=== PATIENT | female | born 1985 | race Caucasian/White ===

== ENCOUNTER 2016-07-18 07:57 | Day surgery (SDC) | payer OTHER ==
[2016-07-11 13:06] LABS: PROTHROMBIN TIME 13.5 SEC (11.4-15.4)
[2016-07-11 13:07] LABS: PARTIAL THROMBOPLASTIN TIME 29.1 SEC (23.5-35.8)
[2016-07-11 13:15] LABS: APPEARANCE,URINE SLIGHTLY-CLOUDY; BILIRUBIN,URINE NEGATIVE (NEGATIVE); GLUCOSE, URINE NEGATIVE (NEGATIVE); KETONES,URINE NEGATIVE (NEGATIVE); LEUKOCYTE ESTERASE,URINE NEGATIVE (NEGATIVE); NITRITE,URINE NEGATIVE (NEGATIVE); PROTEIN,URINE NEGATIVE (NEGATIVE); URINE SPECIFIC GRAVITY 1.025; UROBILINOGEN,URINE NEGATIVE mg/dL (<2.0)
[2016-07-11 13:20] LABS: ANION GAP 11 (5-19); BLOOD UREA NITROGEN 11 mg/dL (7-20); CALCIUM 9.7 mg/dL (8.4-10.2); CARBON DIOXIDE 28 mmol/L (22-30); CHLORIDE 102 mmol/L (98-107); CREATININE RESULT 0.85 mg/dL (0.52-1.25); GLUCOSE 64 mg/dL (75-110); POTASSIUM 4.6 mmol/L (3.6-5.0); SODIUM 140.7 mmol/L (137-145)
--- NOTE | 2016-07-11 17:00 | EKG REPORT ---
SEVERITY:- BORDERLINE ECG - SINUS RHYTHM BORDERLINE T ABNORMALITIES, ANTERIOR LEADS : Confirmed by: Alem Matson MD 11-Jul-2016 16:58:03
[2016-07-13 10:14] LABS: ABSOLUTE EOSINOPHILS # (AUTO) 0.1 10^3/uL (0.0-0.6); ABSOLUTE LYMPHOCYTES (AUTO) 1.5 10^3/uL (0.5-4.7); ABSOLUTE MONOCYTES (AUTO) 0.4 10^3/uL (0.1-1.4); ABSOLUTE NEUT (AUTO) 3.9 10^3/uL (1.7-8.2); BASOPHILS % (AUTO) 0.6 % (0-2); EOSINOPHILS % (AUTO) 1.5 % (0-6); HEMATOCRIT 39.9 % (36.0-47.0); HEMOGLOBIN 13.8 g/dL (12.0-15.5); HGB HCT DIFFERENCE 1.5; LYMPHOCYTES % (AUTO) 25.2 % (13-45); MEAN CORPUSCULAR HEMOGLOBIN 30.3 pg (27.0-33.4); MEAN CORPUSCULAR HGB CONC 34.6 g/dL (32.0-36.0); MEAN CORPUSCULAR VOLUME 87 fl (80-97); MONOCYTES % (AUTO) 6.5 % (3-13); RED BLOOD COUNT 4.56 10^6/uL (3.72-5.28); RED CELL DISTRIBUTION WIDTH 13.2 % (11.5-14.0); SEGMENTED NEUTROPHILS % (AUTO) 66.2 % (42-78); WHITE BLOOD COUNT 5.9 10^3/uL (4.0-10.5)
[~2016-07-18 07:57] MED LIST: BUPIVACAINE HCL 0.25 % INJ/PF (2.5 MG/1 ML) 30 ML VIAL ONE; BUPIVACAINE HCL 0.25% /EPINEPHRINE INJ/PF 30 ML SDV ONE; CEFAZOLIN SODIUM 1 GM in DEXTROSE 5%-WATER 50 ML IV PRN; LACTATED RINGERS 1000 ML IV PRN; LIDOCAINE 0.5% INJ-PF (5 MG/ML) 50 ML SDV SUBCUT PRN; LIDOCAINE 1% INJ-PF (10 MG/ML) 30 ML SDV ONE; SODIUM BICARBONATE 8.4% INJ 50 MEQ/50 ML DISP.SYRIN ONE
[2016-07-18] MEDS ORDERED: MIDAZOLAM 2 MG/2 ML INJ ONE (09:36)
[2016-07-18] MEDS ORDERED: DEXMEDETOMIDINE INJ 80 MCG/20 ML VIAL IV ONE (09:36)
[2016-07-18] MEDS ORDERED: FENTANYL CITRATE INJ/PF 250 MCG/5 ML AMPULE ONE (09:36)
[2016-07-18] MEDS ORDERED: PROPOFOL INJ 200 MG/20 ML VIAL IV ONE (09:36)
[2016-07-18] MEDS ORDERED: LIDOCAINE 1% INJ-PF (10 MG/ML) 30 ML SDV ONE ×2 (09:42→10:26)
[2016-07-18] MEDS ORDERED: DIPHENHYDRAMINE HCL 50 MG/ML VIAL IV PRN (10:25)
[2016-07-18] MEDS ORDERED: FENTANYL CITRATE INJ/PF 100 MCG/2 ML AMPUL IV PRN ×3 (10:25)
[2016-07-18] MEDS ORDERED: OXYCODONE-ACETAMINOPHEN 5-325 MG TABLET PO PRN ×3 (10:25→11:47)
[2016-07-18] MEDS ORDERED: PROMETHAZINE HCL INJ 25 MG/1 ML VIAL IV PRN ×2 (10:25)
[2016-07-18] MEDS ORDERED: MEPERIDINE HCL/PF INJ 25 MG/1 ML DISP.SYRIN IV PRN (10:25)
[2016-07-18] MEDS ORDERED: ONDANSETRON HCL INJ/PF 4 MG/2 ML SDV IV PRN ×2 (10:25→11:47)
[2016-07-18] MEDS ORDERED: MORPHINE SULFATE 10 MG/ML INJ IV PRN (10:25)
[2016-07-18] MEDS ORDERED: CEFAZOLIN INJ 1 GM VIAL ONE (11:36)
[2016-07-18] MEDS ORDERED: DIAZEPAM 10 MG PO PRN (11:49)
[2016-07-18] MEDS ORDERED: NAPROXEN SODIUM 550 MG PO PRN (11:49)
[2016-07-18] MEDS ORDERED: (PENDING PHARMACY ID) (Diclofenac Sodium [Voltaren] 100 GM) TP PRN (11:49)
[2016-07-18] MEDS ORDERED: ZOLPIDEM TARTRATE PO PRN (11:49)
[2016-07-18] MEDS ORDERED: DIAZEPAM 5 MG TABLET PO PRN (12:01)
[2016-07-18] MEDS ORDERED: BUPROPION HCL 75 MG TABLET PO ONE (12:30)
[2016-07-18] MEDS ORDERED: TRAMADOL HCL 50 MG TABLET PO SCH (14:00)
[2016-07-18] MEDS ORDERED: LIDOCAINE 2% INJ-PF (20 MG/ML) 10 ML AMPUL ONE (14:38)
[2016-07-18] MEDS ORDERED: GLYCOPYRROLATE INJ 0.4 MG/2 ML VIAL ONE (14:38)
--- NOTE | 2016-07-18 14:50 | OPERATIVE REPORT E ---
Operative Report NAME: EDGARDO STAFFORD : 1985 AGE: 31Y DATE OF SURGERY: 07/16/2016 ROOM: PREOPERATIVE DIAGNOSES: 1. LUMBAR RADICULOPATHY. 2. 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 POSTOPERATIVE DIAGNOSES: 1. LUMBAR RADICULOPATHY. 2. 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 OPERATION: 1. Implantation of right and left spinal cord stimulating leads under fluoroscopic guidance. 2. Implantation of pulse generator with complex programming and analysis. SURGEON: SHAUN NICHOLAS M.D. SURGICAL ASSISTANTS: Tanisha Sinclair MD ANESTHESIA: MAC. INDICATIONS: Positive response to trial of outpatient spinal cord stimulation. COMPLICATIONS: None. BLOOD LOSS: Minimal. TISSUE REMOVED OR ALTERED: No specimens removed. PROCEDURE: After obtaining informed consent advising the patient of risks and benefits including serious neurological injury, bleeding, infection, failure to treat pain adequately, aggravation of pain, allergic reaction, paralysis and , she was taken to the operating room and placed comfortably in the prone position. Comfort was assessed visually and verbally. MAC anesthesia was administered, along with monitoring appropriately. She was prepped with chlorhexidine x2 and allowed for appropriate drying time of 3 minutes prior to draping. Fluoroscopy was then utilized to evaluate the spine and suitable entrance site overlying the L3-L4 midlumbar region was identified with intended approach to the T12-L1 interspace. The incision over the right gluteal region was preoperatively selected with the patient's consent and this likewise was anesthetized with 1% lidocaine with bicarb followed by 0.25% bupivacaine with epinephrine. Both regions were surgically prepared and hemostasis was attained as necessary with electrocautery. In the lumbar incision, the lumbar fascia was identified and exposed. The region was then evaluated under fluoroscopy and 14-gauge Tuohy needles were placed through preanesthetized locations to enter into the epidural space at T12-L1 using the [id number] to saline technique. Both electrodes were placed through the right and left needles sequentially. After advancing slightly to the T12 level, a lateral view was taken to assure posterior location. This was demonstrated satisfactorily. The leads were then advanced up to the top of T6 and stimulation programming was then initiated. Good stimulation was obtained in the back and lower extremities as necessary. The decision was made to proceed with the implant. Mersilene 0 pursestrings were placed around each needle, followed by an 0 Mersilene distal anchor stitch. Beginning on the left, the needle was removed with attention being given to the electrode under fluoroscopy to assure that it was not dislocated during removal of the needle or the lead Stylette. The pursestring was then secured and the anchor was placed over the electrode and secured at 2 locations prior to tightening the hex nut. This was repeated on the right-hand side in a similar fashion. The wound was then copiously irrigated. Hemostasis was inspected and found to be satisfactory. The leads were then tunneled to the pocket and received by Dr. Sinclair for implantation and connection to the pulse generator. It should be noted that all hex nuts were secured. The implant was placed into the pocket with the generator facing the gluteal region skin. Both wounds were then closed with sequential layering using inverted vertical mattress sutures with 3-0 Polysorb. The midline incision was then closed with gurpreet and the gluteal incision was closed with Dermabond tape and cement. Telfa Tegaderms were placed over the wounds when the cement was dry and the patient was taken to PACU for further postoperative care and monitoring. DICTATING PHYSICIAN: SHAUN NICHOLAS M.D. [id number] PHY#: [id number] ID: [id number] JOB#: [id number] ACCT: [id number] cc:SHAUN NICHOLAS M.D. >
[2016-07-18 15:00] VITALS: BP 99/60
[2016-07-18] MEDS ORDERED: AMITRIPTYLINE HCL 10 MG TABLET PO SCH (18:00)
[2016-07-18] MEDS ORDERED: (PENDING PHARMACY ID) (Dextroamphetamine/Amphetamine [Adderall 20 Mg Tablet] 10 MG) PO SCH (18:00)
[2016-07-18] MEDS ORDERED: ESCITALOPRAM OXALATE 10 MG TABLET PO SCH (22:00)
[2016-07-18] MEDS ORDERED: ZOLPIDEM TARTRATE 5 MG TABLET PO SCH (22:00)
[2016-07-18] MEDS ORDERED: TRAZODONE HCL 50 MG TABLET PO SCH (22:00)
[2016-07-18] MEDS ORDERED: FLUTICASONE NASAL SPRAY 50 MCG/SPRY 120 SPRAY/16 GM NASL PRN (22:00)
[2016-07-19] MEDS ORDERED: BUPROPION HCL 75 MG TABLET PO SCH (10:00)
== END 2016-07-18 14:00 | disposition home or self-care (01) ==
LOC: OROUT 07:57
PROVIDERS: ATTEND Pain Medicine Interventional Pain Medicine
PROC: 00HU3MZ Insertion of Neurostimulator Lead into Spinal Canal, Percutaneous Approach (ICD-10-PCS; 2016-07-18)
PROC: 0JH70MZ Insertion of Stimulator Generator into Back Subcutaneous Tissue and Fascia, Open Approach (ICD-10-PCS; principal; 2016-07-18 10:00)
DX: M54.17 Radiculopathy, lumbosacral region (principal); Z79.899 Other long term (current) drug therapy; M47.897 Other spondylosis, lumbosacral region; M46.1 Sacroiliitis, not elsewhere classified; M54.5 Low back pain; M79.1 Myalgia; F45.42 Pain disorder with related psychological factors; G89.4 Chronic pain syndrome; M51.37 Other intervertebral disc degeneration, lumbosacral region; M54.2 Cervicalgia; M25.559 Pain in unspecified hip; M53.3 Sacrococcygeal disorders, not elsewhere classified; Z79.891 Long term (current) use of opiate analgesic
CPT/HCPCS: 93005; 36415 ×3; 84703; 85025; 85027; 85610; 85730; 80048; 81001; 72070; 93010; 63685; 63650; C1820; C1778; J2250; J3490 ×5; J0690; J3010; J2704; 300

== ENCOUNTER → 2017-03-16 | Outpatient (CLI) | payer OTHER ==
[2017-03-16 12:35] LABS: ABSOLUTE BASOPHILS # (AUTO) 0.1 10^3/uL (0.0-0.2); ABSOLUTE EOSINOPHILS # (AUTO) 0.2 10^3/uL (0.0-0.6); ABSOLUTE MONOCYTES (AUTO) 0.5 10^3/uL (0.1-1.4); ABSOLUTE NEUT (AUTO) 6.2 10^3/uL (1.7-8.2); BASOPHILS % (AUTO) 0.6 % (0-2); EOSINOPHILS % (AUTO) 1.8 % (0-6); HEMATOCRIT 41.9 % (36.0-47.0); HEMOGLOBIN 14.9 g/dL (12.0-15.5); HGB HCT DIFFERENCE 2.8; LYMPHOCYTES % (AUTO) 22.5 % (13-45); MEAN CORPUSCULAR HEMOGLOBIN 29.9 pg (27.0-33.4); MEAN CORPUSCULAR HGB CONC 35.5 g/dL (32.0-36.0); MEAN CORPUSCULAR VOLUME 84 fl (80-97); MONOCYTES % (AUTO) 5.5 % (3-13); RED BLOOD COUNT 4.98 10^6/uL (3.72-5.28); RED CELL DISTRIBUTION WIDTH 13.7 % (11.5-14.0); SEGMENTED NEUTROPHILS % (AUTO) 69.6 % (42-78); WHITE BLOOD COUNT 8.9 10^3/uL (4.0-10.5)
[2017-03-16 13:03] LABS: ALANINE AMINOTRANSFERASE 51 U/L (9-52); ALBUMIN 4.6 g/dL (3.5-5.0); ALKALINE PHOSPHATASE 91 U/L (38-126); ANION GAP 14 (5-19); ASPARTATE AMINO TRANSFERASE 35 U/L (14-36); BILIRUBIN,DIRECT 0.4 mg/dL (0.0-0.4); BILIRUBIN,TOTAL 0.5 mg/dL (0.2-1.3); BLOOD UREA NITROGEN 13 mg/dL (7-20); C-REACTIVE PROTEIN 7.4 mg/L (<10.0); CALCIUM 9.6 mg/dL (8.4-10.2); CARBON DIOXIDE 23 mmol/L (22-30); CHLORIDE 103 mmol/L (98-107); GLUCOSE 79 mg/dL (75-110); POTASSIUM 4.4 mmol/L (3.6-5.0); SODIUM 139.9 mmol/L (137-145); TOTAL PROTEIN 7.8 g/dL (6.3-8.2)
[2017-03-16 13:11] LABS: ERYTHROCYTE SEDIMENTATION RATE 31 mm/hr (0-20)
[2017-03-16 15:39] LABS: FREE T3 4.62 pg/mL (2.77-5.27)
[2017-03-16 15:53] LABS: THYROID STIMULATING HORMONE 0.57 uIU/mL (0.47-4.68)
[2017-03-20 14:45] LABS: VITAMIN D 1,25 DIHYDROXY 74.7 pg/mL (19.9-79.3)
== END ==
LOC: OD 11:13
PROVIDERS: ATTEND Physician Assistant
DX: Z79.899 Other long term (current) drug therapy (principal)
CPT/HCPCS: 36415; 80053; 82607; 82652; 84439; 84443; 84481; 85025; 85652; 86038; 86140; 86430